=== PATIENT | female | born 1970 | race African-American/Black ===

== ENCOUNTER 2023-08-07 08:03 | Emergency (ER) | payer MEDICARE, OTHER ==
[2023-08-07] MEDS ORDERED: SODIUM CHLORIDE 0.9% 1,000 ML IV ONE (08:58)
[2023-08-07] MEDS ORDERED: MAG HYDROX/AL HYDROX/SIMETH 30 ML, HYOSCYAMINE ELIXIR 10 ML, LIDOCAINE VISCOUS 2% 10 ML PO STA ×3 (08:58)
--- NOTE | 2023-08-07 09:01 | ED ---
General Adult HPI - General Chief complaint: Nausea/Vomiting/Diarrhea Stated complaint: Vomiting, Diarrhea Time Seen by Provider: 08/07/23 08:16 Source: patient, RN notes reviewed Mode of arrival: ambulatory Limitations: no limitations - History of Present Illness Initial comments: 52-year-old -German female with no significant past medical history presents chief complaint of nausea, vomiting, diarrhea 3 days. She reports epigastric abdominal pain that is worse when she tries to eat something. She's been taking Pepto-Bismol with mild symptomatic relief. She does not take any medications daily. She denies history of appendectomy or cholecystectomy. Denies fever, chills, cough, hematemesis, melena, hematochezia. Denies recent sick contacts. - Related Data Previous Rx's Medication Instructions Recorded Dicyclomine [Bentyl] 20 mg PO TID #30 tablet 08/07/23 Ondansetron Odt [Zofran Odt] 4 mg PO Q8HR PRN #10 tab 08/07/23 Allergies Allergy/AdvReac Type Severity Reaction Status Date / Time No Known Allergies Allergy Verified 08/07/23 08:08 Review of Systems ROS Statement: Those systems with pertinent positive or pertinent negative responses have been documented in the HPI. ROS Other: All systems not noted in ROS Statement are negative. Past Medical History Past Medical History: No Reported History Past Surgical History: No Surgical Hx Reported Past Psychological History: No Psychological Hx Reported Smoking Status: Never smoker Past Alcohol Use History: Occasional Past Drug Use History: None Reported General Exam - General Exam Comments Initial Comments: General: Alert, in no acute distress Head: atraumatic normocephalic. Eyes PERRL, EOMI intact, mucous membranes moist Respiratory: Lungs clear to auscultation bilaterally Cardiovascular: Heart rate regular rate and rhythm Abdominal: Soft without guarding or rebound, epigastric tenderness. Extremities: Normal inspection with full range of motion and normal capillary refill Neuroogic: alert and oriented 3, CN II-XII intact, able to ambulate with steady gait Skin: warm dry and intact with normal color Limitations: no limitations Course Vital Signs 08/07/23 08/07/23 08/07/23 08:06 09:08 11:21 Temperature 98.2 F 98.4 F Pulse Rate 128 H 102 H 109 H Respiratory 24 20 18 Rate Blood Pressure 141/98 146/100 148/97 O2 Sat by Pulse 100 100 97 Oximetry 08/07/23 08/07/23 13:15 15:18 Temperature 98.6 F 98.5 F Pulse Rate 96 92 Respiratory 18 18 Rate Blood Pressure 146/94 148/92 O2 Sat by Pulse 98 98 Oximetry - Reevaluation(s) Reevaluation #1: 08/07/23 11:27 patient reevaluated. Patient still reports pain. Additional imaging ordered. Reevaluation #2: 08/07/23 13:27 Should reevaluated. Patient updated on x-ray results. Awaiting need for CAT scan. EKG Findings - EKG Comments: EKG Findings:: I interpreted the following: EKG performed at 09:33 80 bpm normal sinus rhythm [place] interval 139, QRS duration 87, QT/QTc 386/422 Medical Decision Making - Medical Decision Making Was pt. sent in by a medical professional or institution (Dr. PA, [facility] [facility], urgent care, hospital, or penitentiary...) When possible be specific @ -[No] Did you speak to anyone other than the patient for history (EMS, parent, family, police, friend...)? What history was obtained from this source @ -[No] Did you review nursing and triage notes (agree or disagree)? Why? @ -[I reviewed and agree with nursing and triage notes] Were old charts reviewed (outside hosp., previous admission, EMS record, old EKG, old radiological studies, urgent care reports/EKG's, penitentiary records)? Report findings @ -[No old charts were reviewed] Differential Diagnosis (chest pain, altered mental status, abdominal pain women, abdominal pain men, vaginal bleeding, weakness, fever, dyspnea, syncope, headache, dizziness, GI bleed, back pain, seizure, CVA, palpatations, mental health, musculoskeletal)? @ -[not applicable] EKG interpreted by me (3pts min.). @ -[As above] X-rays interpreted by me (1pt min.). @ -[None done] CT interpreted by me (1pt min.). @ -Abdominal CT reveals: Colitis U/S interpreted by me (1pt. min.). @ -R ultrasound does not reveal any evidence of cholelithiasis What testing was considered but not performed or refused? (CT, X-rays, U/S, labs)? Why? @ -[None] What meds were considered but not given or refused? Why? @ -[None] Did you discuss the management of the patient with other professionals (professionals i.e. , JANEEN, [facility] [facility], lab, RT, psych nurse, social work lecturer, human resources vice president, teacher, dog license officer supervisor, showcase trimmer)? Give summary @ -[No] Was smoking cessation discussed for >3mins.? @ -[No] Was critical care preformed (if so, how long)? @ -[No] Were there social determinants of health that impacted care today? How? (Home lessness, low income, unemployed, alcoholism, drug addiction, transportation, low edu. Level, literacy, decrease access to med. care, custodial, rehab)? @ -[No] Was there de-escalation of care discussed even if they declined (Discuss DNR or withdrawal of care, Hospice)? DNR status @ -[No] What co-morbidities impacted this encounter? (DM, HTN, Smoking, COPD, CAD, Cancer, CVA, ARF, Chemo, Hep., AIDS, mental health diagnosis, sleep apnea, morbid obesity)? @ -[None] Was patient admitted / discharged? Hospital course, mention meds given and route, prescriptions, significant lab abnormalities, going to OR and other pertinent info. @ -Discharged. This is a 52-year-old -German female who presents the emergency department with nausea, vomiting, diarrhea. Patient had a thorough history and physical exam performed. Physical exam unremarkable. Patient had no episodes of vomiting while in the ED. Patient afebrile. Vital signs stable. Patient had laboratory an extensive imaging were performed which were unremarkable. Patient was discharged with Reglan and Zofran. Recommend close follow-up with PCP in 1-2 days. Case discussed with Dr. Mari Tavon who agrees with plan of care Undiagnosed new problem with uncertain prognosis? @ -[No] Drug Therapy requiring intensive monitoring for toxicity (Heparin, Nitro, Insulin, Cardizem)? @ -[No] Were any procedures done? @ -[No] Diagnosis/symptom? @ -Nausea, vomiting, diarrhea - Colitis Acute, or Chronic, or Acute on Chronic? @ -Acute Uncomplicated (without systemic symptoms) or Complicated (systemic symptoms)? @ -Uncomplicated Side effects of treatment? @ -[No] Exacerbation, Progression, or Severe Exacerbation? @ -[No] Poses a threat to life or bodily function? How? (Chest pain, [place], [place], pneumonia, PE, COPD, DKA, ARF, appy, cholecystitis, CVA, Diverticulitis, Homicidal, S uicidal, threat to staff... and all critical care pts) @ -Low likelihood - Lab Data Result diagrams: 08/07/23 09:19 08/07/23 09:19 Lab Results 08/07/23 08/07/23 08/07/23 Range/Units 09:19 09:19 09:19 WBC 7.0 (3.8-10.6) k/uL RBC 3.91 (3.80-5.40) m/uL Hgb 13.1 (11.4-16.0) gm/dL Hct 40.1 (34.0-46.0) % MCV 102.6 H (80.0-100.0) fL MCH 33.4 (25.0-35.0) pg MCHC 32.6 (31.0-37.0) g/dL RDW 14.4 (11.5-15.5) % Plt Count 369 (150-450) k/uL MPV 7.7 Neutrophils % 61 % Lymphocytes % 33 % Monocytes % 4 % Eosinophils % 2 % Basophils % 0 % Neutrophils # 4.2 (1.3-7.7) k/uL Lymphocytes # 2.3 (1.0-4.8) k/uL Monocytes # 0.3 (0-1.0) k/uL Eosinophils # 0.1 (0-0.7) k/uL Basophils # 0.0 (0-0.2) k/uL Macrocytosis Slight Sodium 142 (137-145) mmol/L Potassium 3.7 (3.5-5.1) mmol/L Chloride 106 (98-107) mmol/L Carbon Dioxide 21 L (22-30) mmol/L Anion Gap 15 mmol/L BUN 11 (7-17) mg/dL Creatinine 0.63 (0.52-1.04) mg/dL Est GFR (CKD-EPI)AfAm >90 (>60 ml/min/1.73 sqM) Est GFR (CKD-EPI)NonAf >90 (>60 ml/min/1.73 sqM) Glucose 131 H (74-99) mg/dL Calcium 10.0 (8.4-10.2) mg/dL Total Bilirubin 0.8 (0.2-1.3) mg/dL AST 34 (14-36) U/L ALT 23 (4-34) U/L Alkaline Phosphatase 89 (38-126) U/L Total Protein 9.1 H (6.3-8.2) g/dL Albumin 4.7 (3.5-5.0) g/dL Lipase 400 H (23-300) U/L Influenza Type A (PCR) Not Detected (Not Detectd) Influenza Type B (PCR) Not Detected (Not Detectd) RSV (PCR) Not Detected (Not Detectd) SARS-CoV-2 (PCR) Not Detected (Not Detectd) Disposition Clinical Impression: Nausea and vomiting, Diarrhea, Colitis Disposition: HOME SELF-CARE Condition: Stable Instructions (If sedation given, give patient instructions): Acute Nausea and Vomiting (ED), Acute Diarrhea (ED) Additional Instructions: Please monitor symptoms closely Please return to the nearest emergency department if worsening symptoms develop Prescriptions: Dicyclomine [Bentyl] 20 mg PO TID #30 tablet Ondansetron Odt [Zofran Odt] 4 mg PO Q8HR PRN #10 tab PRN Reason: Nausea Is patient prescribed a controlled substance at d/c from ED?: No Referrals: None,Stated [Primary Care Provider] - 1-2 days Forms: Area PCPs Time of Disposition: 14:54
[2023-08-07] MEDS ORDERED: ONDANSETRON 4 MG/2 ML VIAL IVP STA (09:26)
[2023-08-07 09:35] LABS: Basophils % (A) 0 %; Eosinophils # (A) 0.1 k/uL (0-0.7); Eosinophils % (A) 2 %; HCT 40.1 % (34.0-46.0); HGB 13.1 gm/dL (11.4-16.0); Lymphocytes # (A) 2.3 k/uL (1.0-4.8); Lymphocytes % (A) 33 %; MCH 33.4 pg (25.0-35.0); MCHC 32.6 g/dL (31.0-37.0); MCV 102.6 fL (80.0-100.0); Macrocytosis Slight; Mean Platelet Volume 7.7; Monocytes # (A) 0.3 k/uL (0-1.0); Monocytes % (A) 4 %; Neutrophils # (A) 4.2 k/uL (1.3-7.7); Neutrophils % (A) 61 %; Platelet Count 369 k/uL (150-450); RBC 3.91 m/uL (3.80-5.40); RDW 14.4 % (11.5-15.5)
[2023-08-07 09:45] LABS: ALT 23 U/L (4-34); AST 34 U/L (14-36); African American GFR (CKD) >90 (>60 ml/min/1.73 sqM); Albumin 4.7 g/dL (3.5-5.0); Alkaline Phosphatase 89 U/L (38-126); Anion Gap 15 mmol/L; Blood Urea Nitrogen 11 mg/dL (7-17); Carbon Dioxide 21 mmol/L (22-30); Chloride 106 mmol/L (98-107); Glucose 131 mg/dL (74-99); Lipase 400 U/L (23-300); Non-African American GFR(CKD) >90 (>60 ml/min/1.73 sqM); Sodium 142 mmol/L (137-145); Total Bilirubin 0.8 mg/dL (0.2-1.3); Total Protein 9.1 g/dL (6.3-8.2)
[2023-08-07 10:07] LABS: Potassium 3.7 mmol/L (3.5-5.1)
[2023-08-07] MEDS ORDERED: MORPHINE SULFATE 4 MG/ML SYRINGE IVP STA (11:19)
[2023-08-07 11:50] VITALS: RESP 18
--- NOTE | 2023-08-07 12:07 | US ---
EXAMINATION TYPE: US gallbladder DATE OF EXAM: 08/07/2023 COMPARISON: NONE CLINICAL INDICATION: Female, 52 years old with history of elevated lipase; n/v x 4 days, elevated lab s TECHNIQUE: Multiple sonographic images of the right upper quadrant are obtained. FINDINGS: EXAM MEASUREMENTS: Liver Length: 16.0 cm Gallbladder Wall: 0.2 cm CBD: 0.6 cm Right Kidney: 8.4 x 4.1 x 3.3 cm CORE ANALYST NOTES:bowel gas obscures views Pancreas: limited view appears wnl Liver: difficult to penetrate Gallbladder: wnl Evidence for sonographic Sherman's sign: no CBD: wnl Right Kidney: wnl IMPRESSION: No acute process.
[2023-08-07] MEDS ORDERED: METOCLOPRAMIDE 5 MG/ML 2 ML VIAL IVP STA (12:55)
[2023-08-07] MEDS ORDERED: DICYCLOMINE 10 MG CAP PO STA (12:55)
--- NOTE | 2023-08-07 13:55 | CT ---
EXAMINATION TYPE: CT abdomen pelvis w con CT DLP: 1221.3 mGycm, Automated exposure control for dose reduction was used. DATE OF EXAM: 08/07/2023 1:47 PM COMPARISON: Ultrasound same day. CLINICAL INDICATION:Female, 52 years old with history of abdominal pain, elevated lipase; abdominal p ain, elevated lipase TECHNIQUE: Axial CT of the abdomen and pelvis. Sagittal and coronal reformats were created on a [employer] workstation. Contrast used:100ml mL of Isovue 300 with IV Contrast, (none if empty) Oral contrast used: without Oral Contrast (none if empty) FINDINGS: LOWER CHEST: Unremarkable ABDOMEN LIVER: Unremarkable GALLBLADDER AND BILE DUCTS: Unremarkable. PANCREAS: Unremarkable. SPLEEN: Unremarkable. A splenule is present in the left upper quadrant. ADRENAL GLANDS: Unremarkable. KIDNEYS AND URETERS: No evidence of hydronephrosis or renal calculus. The ureters are unremarkable. PELVIS BLADDER: Incompletely distended but grossly unremarkable. REPRODUCTIVE: Unremarkable. ABDOMEN & PELVIS STOMACH AND BOWEL: Stomach and duodenum are unremarkable. In the left mid abdomen there is a prominen t loop of transverse with mild wall thickening. No evidence of bowel obstruction. PERITONEUM/RETROPERITONEUM: No evidence of pneumoperitoneum or free fluid. VASCULATURE: No evidence of aortic aneurysm. MUSCULOSKELETAL: Mass degenerative changes of the right hip joint. No acute osseous process. Postsurg ical changes at L4-L5 with disc spacer. LYMPH NODES: No gross evidence for lymphadenopathy. SOFT TISSUE/ABDOMINAL WALL: Unremarkable IMPRESSION: Prominent focal loop of transverse colon with mild wall thickening. This may relate to developing col itis.
[2023-08-07 15:33] VITALS: BP 148/92; PULSE 92; TEMP 98.5
== END 2023-08-07 15:20 | disposition home or self-care (01) ==
LOC: EC 08:03
DX: K52.9 Noninfective gastroenteritis and colitis, unspecified (principal); Z20.822 Contact with and (suspected) exposure to COVID-19
CPT/HCPCS: 36415; 93005; 80053; 83690; 85025; 87636; 76705; 74177; 99285; 96374; 96375 ×2; 96361; J2270; J2765; J2405; Q9967

== ENCOUNTER 2023-12-07 17:18 | Emergency (ER) | payer MEDICARE, OTHER ==
--- NOTE | 2023-12-07 17:32 | ED ---
Back Pain HPI - General Source: patient, RN notes reviewed Limitations: no limitations <Mary Madrigal - Last Filed: 12/07/23 19:06> <Edward Beckett - Last Filed: 12/07/23 20:45> - General Chief Complaint: Back Pain/Injury Stated Complaint: Neuropathy Time Seen by Provider: 12/07/23 17:30 - History of Present Illness Initial Comments: 53 year old female presents to the with a chief complaints of left thigh muscle pain and back pain. Patient has an extensive history of lower back pain, states that she has had surgery of her lumbar spine, and states that she used to follow with a printing specialist and transportation maintenance specialist in [place], but moved to this area relatively 5 months ago. Patient denies any new any trauma to the area. Patient denies history of blood clots, is not on a blood thinner. That she has had numbness and tingling to her left foot over the last 6 months. Used to well with pain management at [place] and has been taking Percocet, Tylenol threes, Motrin at home. Denies any saddle anesthesias, loss of bladder or bowel continence. (Mary Madrigal) - Related Data Previous Rx's Medication Instructions Recorded Dicyclomine [Bentyl] 20 mg PO TID #30 tablet 08/07/23 Ondansetron Odt [Zofran Odt] 4 mg PO Q8HR PRN #10 tab 08/07/23 methocarbamoL [Robaxin-750] 750 mg PO QID #15 tab 12/07/23 Allergies Allergy/AdvReac Type Severity Reaction Status Date / Time No Known Allergies Allergy Verified 12/07/23 17:28 Review of Systems ROS Other: All systems not noted in ROS Statement are negative. <Mary Madrigal - Last Filed: 12/07/23 19:06> ROS Other: All systems not noted in ROS Statement are negative. <Edward Beckett - Last Filed: 12/07/23 20:45> ROS Statement: Those systems with pertinent positive or pertinent negative responses have been documented in the HPI. Past Medical History Past Medical History: No Reported History History of Any Multi-Drug Resistant Organisms: None Reported Past Surgical History: No Surgical Hx Reported Additional Past Surgical History / Comment(s): Spinal fusion Past Psychological History: No Psychological Hx Reported Smoking Status: Never smoker Past Alcohol Use History: Occasional Past Drug Use History: None Reported <FrancescoMary fulton - Last Filed: 12/07/23 19:06> General Exam Limitations: no limitations General appearance: alert, in no apparent distress Head exam: Present: atraumatic, normocephalic, normal inspection Eye exam: Present: normal appearance, PERRL, EOMI. Absent: scleral icterus, conjunctival injection, periorbital swelling ENT exam: Present: normal exam, mucous membranes moist Neck exam: Present: normal inspection. Absent: tenderness, meningismus, lymphadenopathy Respiratory exam: Present: normal lung sounds bilaterally. Absent: respiratory distress, wheezes, rales, rhonchi, stridor Cardiovascular Exam: Present: regular rate, normal rhythm, normal heart sounds. Absent: systolic murmur, diastolic murmur, rubs, gallop, clicks GI/Abdominal exam: Present: soft, normal bowel sounds. Absent: distended, tenderness, guarding, rebound, rigid Extremities exam: Present: normal inspection, full ROM, normal capillary refill. Absent: tenderness, pedal edema, joint swelling, calf tenderness Left Upper Leg exam: Present: tenderness (diffuse tenderness on the posterior thigh, not point identified or with ROM). Absent: full ROM, swelling Knee exam: Present: normal inspection, full ROM Lower Leg exam: Present: normal inspection Neurovascular tendon exam: Present: no vascular compromise. Absent: pulse de ficit Back exam: Present: normal inspection, vertebral tenderness (diffuse lumbar tenderness with flexion and extension) Neurological exam: Present: alert, oriented X3, CN II-XII intact Psychiatric exam: Present: normal affect, normal mood Skin exam: Present: warm, dry, intact, normal color. Absent: rash <Mary Madrigal - Last Filed: 12/07/23 19:06> Course Vital Signs 12/07/23 12/07/23 17:23 19:05 Temperature 98.3 F Pulse Rate 75 71 Respiratory 20 16 Rate Blood Pressure 161/77 136/91 O2 Sat by Pulse 98 100 Oximetry Medical Decision Making <Mary Madrigal - Last Filed: 12/07/23 19:06> <Edward Beckett - Last Filed: 12/07/23 20:45> - Medical Decision Making Was pt. sent in by a medical professional or institution (JANEEN Seaman, MOTHER HELPER, urgent care, hospital, or assisted...) When possible be specific @ -[No] Did you speak to anyone other than the patient for history (EMS, parent, family, police, friend...)? What history was obtained from this source @ -[No] Did you review nursing and triage notes (agree or disagree)? Why? @ -[I reviewed and agree with nursing and triage notes] Were old charts reviewed (outside hosp., previous admission, EMS record, old EKG, old radiological studies, urgent care reports/EKG's, assisted records)? Report findings @ -[No old charts were reviewed] Differential Diagnosis (chest pain, altered mental status, abdominal pain women, abdominal pain men, vaginal bleeding, weakness, fever, dyspnea, syncope, headache, dizziness, GI bleed, back pain, seizure, CVA, palpatations, mental health, musculoskeletal)? @ -Differential Musculoskeletal Muscular strain, contusion, ligament sprain, fracture, arthritis, septic arthritis, bursitis, cellulitis, muscle spasm, nerve compression, DVT, arterial occlusion, herpes zoster, electrolyte abnormality, tumor.... This is not meant to be in all inclusive list EKG interpreted by me (3pts min.). @ -None X-rays interpreted by me (1pt min.). @ -[None done] CT interpreted by me (1pt min.). @ -[None done] U/S interpreted by me (1pt. min.). @ -duplex ultrasound of left extremity reveals no evidence of DVT What testing was considered but not performed or refused? (CT, X-rays, U/S, labs)? Why? @ -[None] What meds were considered but not given or refused? Why? @ -[None] Did you discuss the management of the patient with other professionals (professionals i.e. JANEEN Seaman, MOTHER HELPER, lab, RT, psych nurse, social welfare clerk, plumbing technician, teacher, commissioned police officer, casework manager)? Give summary @ -[No] Was smoking cessation discussed for >3mins.? @ -[No] Was critical care preformed (if so, how long)? @ -[No] Were there social determinants of health that impacted care today? How? (Homelessness, low income, unemployed, alcoholism, drug addiction, transportation, low edu. Level, literacy, decrease access to med. care, shelter, rehab)? @ -[No] Was there de-escalation of care discussed even if they declined (Discuss DNR or withdrawal of care, Hospice)? DNR status @ -[No] What co-morbidities impacted this encounter? (DM, HTN, Smoking, COPD, CAD, Cancer, CVA, ARF, Chemo, Hep., AIDS, mental health diagnosis, sleep apnea, morbid obesity)? @ -[None] Was patient admitted / discharged? Hospital course, mention meds given and route, prescriptions, significant lab abnormalities, going to OR and other pertinent info. @ -53-year-old female with left leg pain and lumbar back pain. Physical exam patient was found to have diffuse tenderness over the posterior left thigh that was not exacerbated by palpation, patient states that her pain is worse with swallowing, but denies pain with flexion extension of knee or hip. Duplex ultrasound of left extremity reveals no evidence of DVT. Was given IM dose of muscle relaxer for symptomatic relief. Xray of lumbar spine and pelvis Undiagnosed new problem with uncertain prognosis? @ -[No] Drug Therapy requiring intensive monitoring for toxicity (Heparin, Nitro, Insulin, Cardizem)? @ -[No] Were any procedures done? @ -[No] Diagnosis/symptom? @ -[default] Acute, or Chronic, or Acute on Chronic? @ -[default] Uncomplicated (without systemic symptoms) or Complicated (systemic symptoms)? @ -[default] Side effects of treatment? @ -[No] Exacerbation, Progression, or Severe Exacerbation? @ -[No] Poses a threat to life or bodily function? How? (Chest pain, [place], [place], pneumonia, PE, COPD, DKA, ARF, appy, cholecystitis, CVA, Diverticulitis, Homicidal, Suicidal, threat to staff... and all critical care pts) @ -[No] (Mary Madrigal) Patient signed out to me pending plain films. Patient presenting to the ED with complaints of pain of her lower back radiating down her lower leg. Reports that this is a chronic problem however recently has developed some paresthesias down her left leg. No saddle anesthesia or incontinence. Patient reports that she used to follow [place] orthopedics and pain management [place] of [place] however notes that she recently moved to this area and would like to have referrals to the specialist here. Also notes that she was worried about a blood clot of her left leg. Ultrasound revealed no evidence of DVT. On exam positive straight leg raise on the left. Symptoms consistent with radiculopathy. Discharged home in stable condition with prescription for muscle relaxers and referral to see orthopedics and pain management. Discussed return precautions with patient who verbalized agreement. (Edward Beckett) Disposition <Mary Madrigal - Last Filed: 12/07/23 19:06> Is patient prescribed a controlled substance at d/c from ED?: No Time of Disposition: 20:45 <Edward Beckett - Last Filed: 12/07/23 20:45> Clinical Impression: Back pain Disposition: HOME SELF-CARE Condition: Good Additional Instructions: Please return to the Emergency Department if symptoms worsen or any other concerns. Please follow-up with orthopedics and pain management. Prescriptions: methocarbamoL [Robaxin-750] 750 mg PO QID #15 tab Referrals: None,Stated [Primary Care Provider] - 1-2 days
[2023-12-07 17:35] VITALS: TEMP 98.3
--- NOTE | 2023-12-07 18:40 | US ---
EXAMINATION TYPE: US venous doppler duplex LE LT DATE OF EXAM: 12/07/2023 6:27 PM COMPARISON: NONE CLINICAL INDICATION: Female, 53 years old with history of upper leg pain; leg pain x months. No hx of DVT. Not on blood thinners SIDE PERFORMED: Left TECHNIQUE: The lower extremity deep venous system is examined utilizing real time linear array sonog lukas with graded compression, doppler sonography and color-flow sonography. VESSELS IMAGED: Common Femoral Vein Deep Femoral Vein Greater Saphenous Vein * Femoral Vein Popliteal Vein Small Saphenous Vein * Proximal Calf Veins (* superficial vessels) There is normal venous flow, compressibility, and vascular waveforms in the left leg. Left Leg: No evidence for DVT IMPRESSION: Left leg negative for DVT.
[2023-12-07] MEDS: ORPHENADRINE 30 MG/ML 2 ML VIAL IM STA (19:01)
[2023-12-07 19:14] VITALS: RESP 16
--- NOTE | 2023-12-07 20:09 | XR ---
EXAMINATION TYPE: XR pelvis AP view DATE OF EXAM: 12/07/2023 6:50 PM CLINICAL INDICATION:Female, 53 years old with history of back pain, hx of surgery; [facility] COMPARISON: None TECHNIQUE: The pelvis was examined in a single projection. FINDINGS: There is no evidence of fracture or dislocation. Moderate to severe right and minimal left hip osteoa rthropathy. There is no soft tissue abnormality. No abnormal calcifications are present. Lower lumba r spine shows posterior fusion changes. There are pelvic phleboliths. IMPRESSION: 1. No acute fracture or dislocation identified, on this single view of the pelvis. 2. Moderate to severe right hip arthropathy.
--- NOTE | 2023-12-07 20:12 | XR ---
EXAMINATION TYPE: XR lumbar spine 2 or 3V DATE OF EXAM: 12/07/2023 6:50 PM CLINICAL INDICATION:Female, 53 years old with history of back pain, hx of surgery; [facility] COMPARISON: None TECHNIQUE: XR lumbar spine 2 or 3V - Frontal, lateral and coned down L5-S1 lateral views of the lumba r spine. FINDINGS: There are 5 lumbar-type vertebral bodies. Mineralization appears within normal limits. No osseous aarno tructive process seen. Vertebral body heights are maintained. Disc spaces are generally maintained, h owever there may be mild narrowing in the region of the thoracolumbar junction. There are bilateral p edicle screws and posterior fixation rods at the L4-L5 level along with prosthetic metallic disc inte rspacer. Alignment is normal. Soft tissues are unremarkable. IMPRESSION: 1. No radiographic evidence of acute compression fracture. 2. Posterior lumbar fusion L4-L5.
[2023-12-07] MEDS: CYCLOBENZAPRINE 10MG STARTER 3 TAB BTL PO STA (21:07)
[2023-12-07 21:25] VITALS: BP 140/93; PULSE 84
== END 2023-12-07 21:14 | disposition home or self-care (01) ==
LOC: EC 17:18
DX: M43.26 Fusion of spine, lumbar region (principal)
CPT/HCPCS: 99284; 96372; 72100; 72170; 93971; J2360

== ENCOUNTER → 2024-06-25 | Outpatient (CLI) | payer MEDICARE, OTHER ==
[2024-06-25 14:17] VITALS: BP 120/88; PULSE 100; RESP 17; TEMP 98.9
--- NOTE | 2024-06-25 14:53 | P.PAINPG ---
Objective - Vital Signs Vital signs: Intake & Output 06/24/24 06/25/24 06/25/24 18:59 06:59 18:59 Weight 189 kg PQRS Measure Charge Sheet Comment: HISTORY OF PRESENT ILLNESS: A 53 yr old female as a referral from Dr Hdz presents today w severe and chronic LBP > 4 yrs secondary to L4-L5 PLDF for evaluation. Pt states pain level is provoked at 10 /10 in intensity, constant, localized in the lower lumbar spine, predominantly axial, achy in character w occasional shooting pain towards the R hip and tingling towards the L ankle. Pain is provoked by over activity. Pain is alleviated by PT x 6 wks which ended in 2022, physician guided home exercises 4 weekly since 2022, medications (Aleve, Mobic, Ibu, Percocet 10/325mg 7 per day), use of walker for ambulatory assistance, repositioning and rest . PMH: OA, Hypothyroidism, MDD PSH: PLDF L4-L5 (2019), SH: Never smoker, Occ ETOH use, No illicit drug use FH: Non contributory All: See list Meds: See list REVIEW OF ORGAN SYSTEMS: CONSTITUTIONAL: No fevers or chills. No recent weight loss. NEUROLOGICAL: + numbness and tingling along the distal extremities. No seizure disorders or headaches. MUSCULOSKELETAL: + pain PSYCHIATRIC: Denies current depression or suicidal thoughts. Physical Examinations : Constitutional : Cooperative , not in acute distress . Neurologic : Cranial nerve II to XII intact. No focal neurological deficits. Psychiatric : alert & oriented x 3. Matching mood & appropriate affect. Judgment & insight intact. Musculoskeletal : Cervical Spine Motor strength in the deltoid and biceps: Normal right side. Normal Left side Motor strength biceps and the wrist extensors: Normal right side . Normal left side Motor strength in the triceps muscle: Normal right side. Normal left side Deep tendon reflexes: Normal at the biceps. Normal at Brachioradialis. Normal at triceps Vertebral body tenderness to deep palpation over Cervical facet loading test: positive bilaterally Spurling test: positive bilaterally Neck distraction test: positive bilaterally Nissa sign: positive bilaterally Lumbar spine Motor strength lower extremities ,thigh and legs 5/5 Right side , 5/5 Left side Deep tendon reflexes : Normal Knee Jerk. Normal Ankle Jerk Vertebral body tenderness over L5 Rahman Test positive Lumbar facet Loading Test: positive Right / positive Left Range of motion of the lumbar spine Flexion 30 degrees, extension 10 degrees Straight Leg Raise test: Left/ Right positive at < 30 degrees Connie test: positive right / positive left. Severe tenderness over the Sacroiliac joint on the Right / Left sides Gaenslen test: positive bilaterally Seated flexion test: positive bilaterally. Sacral spine : Severe tenderness over the Sacroiliac joint: right side / left side Range of motion: Flexion of the lumbar spine <60 degrees Range of motion: Extension of the lumbar spine <20 degrees Gaenslen's Test positive Connie test: positive right side / left side Thigh Thrust Test Sacral Thrust Test Imaging: MRI non contrast lumbar spine from 06/10/2022 reviewed Assessment/ Plan : L4-L5 PLDF Recommendation of BL TFESI L5-S1 #1. Risks, benefits of procedure discussed and patient verbalized understanding. Admits to anti- coagulant use or medical history of diabetes. Protocol for discontinuation/ continuation of medications rhiannon procedure discussed. All questions answered. I have spent greater than 30 minutes on patient care today. Dr Ramsey was available by phone for the evaluation of this patient. The time was used to review the medical records including relevant urine studies and Prescription history (MAPs), review of the available imaging, evaluation and examination of the patient, coordination of care with the medical staff and if applicable referring physicians, as well as creation of the medical record Home Medications: Ambulatory Orders Dicyclomine [Bentyl] 20 mg PO TID #30 tablet 08/07/23 Ondansetron Odt [Zofran Odt] 4 mg PO Q8HR PRN #10 tab 08/07/23 methocarbamoL [Robaxin-750] 750 mg PO QID #15 tab 12/07/23 Controlled Substance Measures - Controlled Substance Measures Is patient prescribed a controlled substance at discharge?: No
== END ==
LOC: PNWHC3 13:48
PROVIDERS: ATTEND Specialist
DX: M47.817 Spondylosis without myelopathy or radiculopathy, lumbosacral region (principal); M48.062 Spinal stenosis, lumbar region with neurogenic claudication; M51.86 Other intervertebral disc disorders, lumbar region
CPT/HCPCS: 99202

== ENCOUNTER → 2024-06-28 | Day surgery (SDC) | payer MEDICARE, OTHER ==
[~2024-06-28] MED LIST: IOPAMIDOL M200 10 ML VIAL ONE; LACTATED RINGERS 1,000 ML IV SCH; methylPREDNISolone ACETATE 80 MG/ML 1 ML VIAL ONE
[2024-06-28 09:20] VITALS: TEMP 96.6
--- NOTE | 2024-06-28 10:22 | P.PCN ---
Date of Procedure: 06/28/24 Procedure(s) Performed: PREOPERATIVE DIAGNOSIS: 1-Lumbar radiculopathy . 2- postlaminectomy pain syndrome lumbar area POSTOPERATIVE DIAGNOSIS: 1-lumbar radiculopathy. 2-laminectomy pain syndrome lumbar area PROCEDURE 1. Transforaminal epidural steroid injection under fluoroscopic guidance at bilateral L5-S1 level. (Fluoroscopy images stored on file in the radiology Department ) 2. Lumbar epidurogram . ANESTHESIA: Local with 1% lidocaine 3 ml. EBL: Minimal PROCEDURE INDICATION: The patient with low back pain and radiculopathy symptoms unresponsive to conservative treatment. PROCEDURE DESCRIPTION / TECHNIQUE: The patient was seen and identified in the preoperative area. Risks, benefits, complications, and alternatives were discussed with the patient. The patient agreed to proceed with the procedure and signed the consent. IV was started, and vital signs were stable. Patient was taken to the OR and time out was completed. The patient was placed in the prone position on procedure table and a pillow was placed under the abdomen to reduce lumbar lordosis. The lumbosacral area was prepped and draped in the usual sterile fashion. Critical pause was taken. Vital signs were closely monitored during the procedure. Using oblique fluoroscopy, the chin of the ``Frank dog at Right L5-S1 level was identified, and the skin and deeper tissues just below was localized with 1% lidocaine. Subsequently, a 22-gauge 5-inch spinal needle was advanced under a tunneled view fluoroscopic guidance just underneath the chin of the ``Frank dog at the right L5-S1 Under lateral fluoroscopy, the needle was then advanced to the posterior border of the interforaminal space. After negative aspiration of CSF and blood and with no paresthesias, 1 mL Isovue 200 contrast dye was injected excellent epidurogram and outlining of the nerve root Subsequently, 3 mL of block solution containing 40 mg Depo-Medrol and 2 mL of 0.9% normal saline PF was injected. Needle was removed and the same procedure was repeated at the left L5-S1 level. At the end of the procedure, skin was cleansed, and bandages were applied. COMPLICATIONS:none DISPOSITION / PLANS: The patient was placed in a supine position and transferred to the recovery area in a stable condition for observation. There was no abby dence of lower extremity motor or sensory deficit after the procedure. Patient was discharged from the recovery room after meeting discharge criteria. Home discharge instructions were given to the patient by the staff. The patient was reexamined prior to discharge.
[2024-06-28 10:39] VITALS: BP 130/91; PULSE 77; RESP 14
--- NOTE | 2024-06-28 11:10 | FL ---
Fluoroscopy guided pain management. HISTORY: Back pain. COMPARISON: None TECHNIQUE: 15 seconds of fluoroscopy and 2 spot films were obtained for transforaminal injection at t he L5-S1 level. FINDINGS: Satisfactory bilateral transforaminal injection at the L5-S1 level [facility], , 06/28/2024 11:07 AM
== END ==
LOC: ORPAIN 08:57
PROVIDERS: ATTEND Specialist

== ENCOUNTER → 2024-12-25 | Outpatient (CLI) | payer MEDICARE, OTHER ==
[2024-12-25 14:04] LABS: INR 0.9 (<1.2); Prothrombin Time 10.3 sec (10.0-12.5)
[2024-12-25 18:12] LABS: Basophils # (A) 0.03 X 10*3/uL (0.00-0.10); Basophils % (A) 0.6 %; Eosinophils # (A) 0.09 X 10*3/uL (0.04-0.35); Eosinophils % (A) 1.9 %; HCT 37.3 % (37.2-46.3); HGB 11.5 g/dL (12.0-15.0); Lymphocytes # (A) 2.18 X 10*3/uL (0.90-5.00); Lymphocytes % (A) 46.9 %; MCHC 30.8 g/dL (32.0-37.0); MCV 100.5 FL (80.0-97.0); Monocytes # (A) 0.39 X 10*3/uL (0.20-1.00); Monocytes % (A) 8.4 %; NRBC Per 100 WBC 0 X 10*3/uL (0.00-0.01); Neutrophils # (A) 1.95 X 10*3/uL (1.80-7.70); Platelet Count 378 X 10*3/uL (140-440); RBC 3.71 X 10*6/uL (4.10-5.20); RDW 15.9 % (11.5-14.5); WBC 4.65 X 10*3/uL (4.50-10.00)
[2024-12-25 19:02] LABS: BUN/Creat Ratio 11.12 Ratio (12.00-20.00); Blood Urea Nitrogen 8.9 mg/dL (9.0-27.0); Carbon Dioxide 27.6 mmol/L (21.6-31.8); Chloride 102 mmol/L (96-109); Glucose 82 mg/dL (70-110); Sodium 138 mmol/L (135-145)
[2024-12-25 19:03] LABS: ALT 15 U/L (8-44); AST 23 U/L (13-35); Albumin 4.3 g/dL (3.8-4.9); Albumin/Globulin Ratio 1.23 Ratio (1.60-3.17); Alkaline Phosphatase 80 U/L (41-126); Calcium 8.7 mg/dL (8.7-10.3); Globulin 3.5 g/dL (1.6-3.3); Total Bilirubin <0.2 mg/dL (0.3-1.2); Total Protein 7.8 g/dL (6.2-8.2)
== END | disposition home or self-care (01) ==
LOC: LABPAT 12:47
PROVIDERS: ATTEND Orthopaedic Surgery
DX: Z01.818 Encounter for other preprocedural examination (principal); Z22.322 Carrier or suspected carrier of Methicillin resistant Staphylococcus aureus; E11.9 Type 2 diabetes mellitus without complications; E03.9 Hypothyroidism, unspecified; M16.11 Unilateral primary osteoarthritis, right hip; F33.1 Major depressive disorder, recurrent, moderate; M96.1 Postlaminectomy syndrome, not elsewhere classified; D68.9 Coagulation defect, unspecified; R30.0 Dysuria
CPT/HCPCS: 80053; 83036; 85025; 85610; 85730; 86850; 86900; 86901; 87070; 93005

== ENCOUNTER 2025-01-04 08:51 | Day surgery (SDC) | payer MEDICARE, OTHER ==
[2024-12-28 11:44] VITALS: BMI 37.8
[~2025-01-04 08:51] MED LIST changes: -IOPAMIDOL M200 10 ML VIAL ONE; -LACTATED RINGERS 1,000 ML IV SCH; +TRANEXAMIC 1,000 MG/100ML-NACL 1,000 MG in SALINE 1 100ML.BAG IV PRN; +TRANEXAMIC 1,000 MG/100ML-NACL 1,000 MG in SALINE 1 100ML.BAG IVPB PRN; -methylPREDNISolone ACETATE 80 MG/ML 1 ML VIAL ONE
[2025-01-04] MEDS: LACTATED RINGERS 1,000 ML IV ONE ×2 (09:51→11:23)
[2025-01-04] MEDS: DOCUSATE 100 MG CAP PO PRN (09:52)
[2025-01-04] MEDS: oxyCODONE ER 10 MG TAB.ER.12H PO PRN (09:52)
[2025-01-04] MEDS: ACETAMINOPHEN TAB 500 MG TAB PO PRN (09:52)
[2025-01-04] MEDS: DEXAMETHASONE SOD PHOSPHATE 10 MG/ML 1 ML VIAL IV PRN (09:54)
[2025-01-04] MEDS: KETOROLAC 15 MG/ML 1 ML VIAL IVP PRN (09:54)
[2025-01-04] MEDS: LACTATED RINGERS 1,000 ML IV SCH (09:55)
[2025-01-04] MEDS: ONDANSETRON 4 MG/2 ML VIAL IVP PRN (09:55)
[2025-01-04] MEDS: FAMOTIDINE 20 MG/2 ML VIAL IVP PRN (09:55)
[2025-01-04] MEDS: MIDAZOLAM 2 MG/2 ML VIAL IV PRN (10:09)
[2025-01-04] MEDS: fentaNYL (PF) 50 MCG/ML 2 ML AMP IVP STA (10:09)
[2025-01-04] MEDS ORDERED: fentaNYL (PF) 50 MCG/ML 2 ML AMP ONE (10:32)
[2025-01-04] MEDS ORDERED: GLYCOPYRROLATE 0.2 MG/ML 2 ML VIAL ONE (10:32)
[2025-01-04] MEDS ORDERED: LIDOCAINE 1% INJ 10MG/ML (20 ML MDV) ONE (10:32)
[2025-01-04] MEDS ORDERED: PROPOFOL 10 MG/ML 20 ML VIAL IV ONE (10:32)
[2025-01-04] MEDS ORDERED: DEXAMETHASONE SOD PHOSPHATE 4 MG/ML 1 ML VIAL ONE (10:32)
[2025-01-04] MEDS ORDERED: ROCURONIUM 10 MG/ML (5 ML VIAL) IV ONE (10:32)
[2025-01-04] MEDS ORDERED: DEXAMETHASONE SOD PHOSPHATE 10 MG/ML 1 ML VIAL ONE (10:32)
[2025-01-04] MEDS ORDERED: PHENYLEPHRINE-0.9% NACL SYG 1,000 MCG/10 ML SYRINGE ONE (10:32)
[2025-01-04] MEDS ORDERED: TRANEXAMIC 1,000 MG/100ML-NACL PREMIX BAG ONE (10:32)
[2025-01-04] MEDS ORDERED: MIDAZOLAM 2 MG/2 ML VIAL ONE (10:32)
[2025-01-04] MEDS ORDERED: PHENYLEPHRINE 10 MG/ML VIAL ONE (10:32)
[2025-01-04] MEDS ORDERED: ROPIVACAINE 5 MG/ML 30 ML VIAL ONE (10:32)
[2025-01-04] MEDS ORDERED: NEOSTIGMINE 1 MG/ML 10 ML VIAL ONE (10:32)
[2025-01-04] MEDS ORDERED: SUCCINYLCHOLINE CHLORIDE 200 MG/10 ML VIAL IV ONE (10:32)
[2025-01-04] MEDS ORDERED: HYDROmorphone (PF) 1 MG/ML ONE (10:32)
[2025-01-04] MEDS ORDERED: KETAMINE HCL IN 0.9 % NACL 50 MG/5 ML SYRINGE ONE (10:32)
[2025-01-04] MEDS: ceFAZolin 2 GM in DEXTROSE 5% IN WATER 50 ML IVPB PRN (10:34)
[2025-01-04] MEDS: ROPIVACAINE/EPI/CLONIDINE/KET 50 ML SYRINGE MISCELLANE PRN (10:34)
--- NOTE | 2025-01-04 12:37 | P.OP ---
Date of Procedure: 01/04/25 Preoperative Diagnosis: 1. Severe right hip arthritis 2. BMI 36.9 Postoperative Diagnosis: Same Procedure(s) Performed: 1. Right direct anterior total hip arthroplasty Implants: 1. Tyler Trident II Acetabular Cup, Size #48 2. Tyler Insignia Size #3 Femoral Stem, High Offset 3. Dual Mobility OD 38 mm, ID 28 mm, -4 mm neck Anesthesia: MEGHANA, regional Surgeon: Mikhail Ramirez Services Mgr #1: Lenny Leo Estimated Blood Loss (ml): 300 IV fluids (ml): 800 Pathology: none sent Condition: stable Disposition: PACU Indications for Procedure: I had a long discussion with the patient in the office on the potential risks and complications of an elective total hip replacement through a direct anterior approach. Risks discussed include, but are certainly not limited to, risks from anesthesia, superficial infection requiring local wound care or antibiotics, deep rhiannon-prosthetic joint infection and the treatment required to eradicate infection, intraoperative fracture, postoperative periprosthetic fracture, damage to local blood vessels or nerves particularly the lateral femoral cutaneous nerve, delayed wound healing requiring local wound care or possibly surgical debridement, hip dislocation, leg length discrepancy, soft tissue irritation around the total hip implant such as iliopsoas tendinitis or trochanteric bursitis, wear and osteolysis from the implants, squeaking or audible noises, groin pain, thigh pain, heterotopic ossification, stiffness, aseptic loosening of the implants, dissatisfaction with surgical outcome, need for revision surgery, DVT, PE, swelling of the operative extremity, acute coronary event, stroke, failure to thrive, and possibly loss of life or limb. The patient understands that while these are the most common complications after an elective hip replacement there are certainly other less common complications possible. They were given ample time to ask questions regarding the potential complications of a hip replacement. Following our discussion the patient provided their verbal and written consent to go forward with an elective total hip replacement. Operative Findings: Severe right hip arthritis Description of Procedure: The patient was identified in the preoperative holding area and the correct hip was marked with my initials. I reviewed the procedure and consent with the patient. All of their questions were answered. The patient was then brought back into the operating room by anesthesia. While on the [facility] anesthesia was administered by the anesthesia team. Preoperative antibiotics and tranexamic acid were also given. After the patient was under anesthesia I examined their ankles to determine their preoperative leg length discrepancy. The skin over the anterior aspect of the hip was shaved to remove hair over the site of planned incision. Both feet and ankles were padded with webril and boots for the [place] were applied. The patient was then carefully transferred onto the [place] table. A perineal post was immediately placed. The arms were placed on arm holders and were well-padded. Both boots were secured to the spars on the [place] table. The patient was positioned so that the pelvis was centered over the post. Nonsterile drapes were applied. A timeout was performed identifying the correct patient, operative extremity, and procedure. At this point fluoroscopy was brought in to take preoperative images of the pelvis and operative hip. Using the standing AP pelvis from the office as a template, a comparable image was obtained with fluoroscopy. A metallic bar was used to create a bi-ischial line for use as a reference to leg length adjustments during the procedure. Global offset was also measured on both the operative and nonoperative leg. Fluoroscopy was then brought out and a pre-scrub using a chlorhexidine scrub brush was performed. The operative limb was then prepped and draped in the standard sterile fashion. An anterior longitudinal incision was made lateral and distal to the ASIS. The skin and subcutaneous tissues were incised sharply. The underlying tensor fascia was identified and incised in its midportion. The fascia was dissected free from the underlying muscle and the muscle belly was retracted. A blunt tipped cobra retractor was placed over the superior neck under the muscle fibers of the gluteus minimus. The deep enveloping fascia of the tensor was incised. The anterior leash of vessels were then identified and cauterized. The fascia between the rectus and the capsule was then incised and the pre-capsular fat was excised. A second Cobra was placed inferior to the neck. The interval between the rectus and iliocapsularis and the hip capsule was developed and a retractor was placed carefully over the anterior rim of the acetabulum. A T-shaped anterior capsulotomy was performed. The superior capsular leaflet was left in place in the inferior capsular flap was excised. The Cobra retractors were plac ed intracapsularly. We then made a femoral neck osteotomy according to preoperative and intraoperative templating and confirmed the level of the osteotomy using fluoroscopic imaging. The femoral head was removed, passed off to the back table, and sized. The superior capsular flap was excised. Retractors were placed circumferentially exposing the acetabulum. We then circumferentially debrided the acetabulum free of labrum and osteophytes. The pulvinar was removed to fully visualize the cotyloid fossa. We then sequentially reamed to achieve peripheral fit and excellent bleeding subchondral bone. The socket was thoroughly irrigated. The acetabular component was impacted into the appropriate position using fluoroscopy to guide version, inclination, and depth of insertion taking care to have a comparable image of the AP pelvis to the standing image taken in the office. An excellent press-fit was achieved and final position was confirmed using fluoroscopy. The press fit was augmented with a bony cancellus dome screw. The liner was then impacted into the socket. Attention was then turned to the femur. The remnant dorsal lateral capsule was excised. The short external rotators were visible and protected. A bone hook was used to confirm appropriate translation of the trochanter away from the acetabulum. The leg was then extended and adducted and the bone hook was used t o elevate the femur for broaching. A box osteotome and blunt tipped canal sound was then utilized to gain access to the femoral canal. We then sequentially broached the femur in appropriate anteversion until excellent torsional stability was achieved. The neck cut was brought flush to the trial broach with a calcar planar. A trial neck and head were then placed onto the broach and the hip was atraumatically reduced under direct visualization. External rotation to 90 was performed to assess stability. Fluoroscopy was brought in. An AP and lateral fluoroscopic image of the proximal femur was obtained to assess position and fill of the trial broach. An AP of the pelvis was then obtained and matched to the preoperative image taken. A bi-ischial bar was then placed and measurements were taken to assess changes in length and offset. The hip was then carefully dislocated, the proximal femur was exposed, and the trial implants were removed. The wound and proximal femur was thoroughly irrigated using sterile saline and pulsatile lavage. The final femoral implant was dispensed and gently tapped into place generating an excellent press-fit. The trunnion was cleansed and the final head was tapped into place to engage the Velazco taper. The acetabulum was irrigated and visualized to be free of debris. The hip was carefully reduced. Stability was checked clinically with external rotation to 90 and there was no evidence of instability. Final fluoroscopic images were taken. The wound was then thoroughly irrigated and soaked with a dilute Betadine rinse for 3 minutes. 3 L of sterile saline was irrigated through the wound using pulsatile lavage. Local anesthetic cocktail was injected into the soft tissues around the surgical field. The wound was then closed in layers. A sterile dressing was placed over the surgical incision. The drapes were taken down and the patient was carefully transferred off of the [place] table. Following removal of the boots the leg lengths felt acceptable. The patient was then taken to recovery room having tolerated the procedure well. Lenny Leo PA-C was required as a skilled middle school assistant principal due to the complexity of surgery for patient positioning, draping, exposure, retraction, closure of wound and application of dressing. PLAN: The patient can weight-bear as tolerated on the operative extremity. 2 doses of postoperative antibiotics. DVT prophylaxis with aspirin 81 mg twice a day based on preoperative risk stratification. Physical therapy for gait training.
[2025-01-04] MEDS ORDERED: MAGNESIUM HYDROXIDE 2,400 MG/30 ML CUP PO PRN (12:38)
[2025-01-04] MEDS ORDERED: HYDROcodone/APAP 5-325MG 1 EACH TAB PO PRN (12:38)
[2025-01-04] MEDS ORDERED: TEMAZEPAM 15 MG CAP PO PRN (12:38)
[2025-01-04] MEDS ORDERED: diazePAM 5 MG TAB PO PRN (12:38)
[2025-01-04] MEDS ORDERED: HYDROmorphone 0.5 MG/0.5 ML SYRINGE IVP PRN ×2 (12:38)
[2025-01-04] MEDS ORDERED: NALOXONE 0.4 MG/ML 1 ML VIAL IV PRN (12:38)
--- NOTE | 2025-01-04 12:39 | XR ---
EXAMINATION TYPE: XR Hip Limited RT, FL guidance operating room Intraoperative/procedural fluoroscopi c services were provided. CLINICAL INDICATION:Female, 54 years old with history of M16.11 RIGHT HIP OSTEOARTHRITIS; , [facility] FINDINGS: Postsurgical changes from right total hip arthroplasty. Hardware appears intact with appropriate alig nment. No radiographic evidence for complication. Total fluoroscopy time is 36.0 seconds. DAP: 2.2279 Gycm2 Please see the operative/procedural note for further details. [facility], , 01/04/2025 12:37 PM
[2025-01-04] MEDS: HYDROmorphone 0.5 MG/0.5 ML SYRINGE IVP PRN (13:15)
--- NOTE | 2025-01-04 13:30 | P.ANPRN ---
Procedure Note - Anesthesia - Nerve Block Performed Right Hendricks Single Time Out Performed: Yes (1008) Date of Procedure: 01/04/25 Procedure Start Time: 10:09 Procedure Stop Time: 10:12 Location of Patient: PreOp Indication: Acute Post-Operative Pain, Requested by Surgeon Specifically requested for management of pain by DrEmily: Mikhail Ramirez Sedation Type: Sedate with meaningful contact maintained Preparation: Sterile Prep Position: Supine Catheter: None Needle Types: Pajunk Needle Gauge: 21 Ultrasound used to visualize needle placement: Yes Ultrasound used to observe medication spread: Yes Injectate: 0.5% Ropivacaine (see comment for volume) (30cc +decadron 4mg) Blood Aspirated: No Pain Paresthesia on Injection Noted: No Resistance on Injection: Normal Image Stored and Saved: Yes Events: Uneventful and Well Tolerated
[2025-01-04] MEDS: HYDROmorphone 2 MG/ML 1 ML SYRINGE IVP PRN (15:10)
--- NOTE | 2025-01-04 15:51 | P.CONS ---
History of Present Illness - Reason for Consult Consult date: 01/04/25 Medical Management Requesting physician: Mikhail Ramirez - History of Present Illness History of Presenting Illness: Patient is a pleasant 54-year-old female with a past medical history of hypothyroidism and osteoarthritis. She is currently admitted under orthopedic surgery team status post right total hip arthroplasty. Surgical procedure completed by Dr. Ramirez secondary to severe right hip secondary to severe right hip arthritis. We were consulted for medical management throughout hospitalization. Patient seen and fully evaluated at bedside in room 472. She currently reports moderate postoperative pain currently rating 8 out of 10 at this time. She also reports pain and muscle spasms in her left hip and down her left leg. She denies having any dizziness, lightheadedness, chest pain, palpitations, shortness of breath, or experiencing any numbness or tingling in her extremities. Patient reports she has already been up to urinate without any difficulties. She denies having any postoperative nausea or vomiting and is tolerating regular diet. Review of systems: Pertinent positives and negatives as discussed in HPI, a complete review of systems was performed and all other systems are negative. Physical exam: Vital signs reviewed and stable. General: Nontoxic, no distress and appears stated age. Derm: Skin warm and dry, normal coloration for ethnicity. Head: Atraumatic, normocephalic and symmetric. Eyes: EOM's intact, no lid lag, and anicteric sclera Mouth: no lip lesions, mucus membranes moist Cardiovascular: regular rate and rhythm with normal S1S2, no murmur, positive posterior tibial pulses bilaterally, and cap refill < 2 seconds. Lungs: Respirations even, regular, and unlabored on room air. Lungs CTA bilaterally, no rhonchi, no rales, no wheezing, and no accessory muscle usage. Abdominal: soft, nontender to palpation, no guarding, no appreciable organomegaly Ext: . Movement and sensation intact. No gross muscle atrophy, no edema, no contractures Neuro: Speech clear, face symmetrical and CN II-XII grossly intact with no noted focal neuro deficits Psych: Alert and oriented to person, place, time, and situation. Appropriate and pleasant affect. Assessment and Plan of Care: Status post right total hip arthroplasty - Management per primary admitting orthopedic surgery team including DVT prophylaxis, pain management, wound/dressing management, weightbearing, and PT/OT. - Currently DVT prophylaxis with PEE hose and SCDs. Hypothyroidism -Continue daily medication regimen with levothyroxine 150 mcg daily. Data reviewed: - Vital signs reviewed. Blood pressure 100/67, heart rate 84, respiratory rate 16, temp 98.8 F, and SpO2 of 100% on room air. Thank you for allowing us to participate in the care of this pleasant patient. Do not hesitate to contact us with questions. Someone can be reached from the [facility] hospitalist group all hours of the day at [phone] or via [employer] Patient was seen independently by Nurse Practitioner. This document was prepared using [employer] dictation software. Please allow for errors in termite control technician while rare they do occur. Maurisio Irby NP rendered care for this patient independently, reviewed the findings and plan as documented in the note above and agree with plan. I did not physically speak with or examine the patient on this date. Past Medical History Past Medical History: Osteoarthritis (OA), Thyroid Disorder History of Any Multi-Drug Resistant Organisms: None Reported Past Surgical History: Back Surgery, Section Additional Past Surgical History / Comment(s): Spinal fusion, spinal stenosis Past Anesthesia/Blood Transfusion Reactions: No Reported Reaction Additional Past Anesthesia/Blood Transfusion Reaction / Comm: no hx blood transfusion hx Past Psychological History: No Psychological Hx Reported Smoking Status: Never smoker Past Alcohol Use History: Occasional Past Drug Use History: None Reported - Past Family History Mother Family Medical History: Hypertension Medications and Allergies Home Medications Medication Instructions Recorded Confirmed Type Acetaminophen [Tylenol Arthritis] 650 mg PO Q6H PRN 12/28/24 01/04/25 History Ibuprofen 800 mg PO Q8H PRN 12/28/24 01/04/25 History Levothyroxine Sodium [Synthroid] 150 mcg PO QAM 12/28/24 01/04/25 History oxyCODONE-APAP 10-325MG [Percocet 1 tab PO Q4HR PRN 12/28/24 01/04/25 History 10-325 mg] Allergies Allergy/AdvReac Type Severity Reaction Status Date / Time No Known Allergies Allergy Verified 01/04/25 09:23 Physical Exam Vitals: Vital Signs Temp Pulse Resp BP Pulse Ox 01/04/25 13:49 67 16 148/70 100 01/04/25 13:40 71 16 158/74 100 01/04/25 13:25 78 16 165/75 100 01/04/25 13:10 74 16 138/82 98 01/04/25 12:55 96.8 F L 91 16 144/84 100 01/04/25 10:16 80 16 124/89 100 01/04/25 09:26 97.5 F L 83 16 141/80 99 Intake and Output 01/04/25 01/04/25 01/04/25 06:59 14:59 22:59 Intake Total 1750 Output Total 300 Balance 1450 Intake: IV 1750 Output: Estimated Blood Loss 300 Other: Weight 88.7 kg 88.7 kg
[2025-01-04] MEDS: SODIUM CHLORIDE 0.9% 1,000 ML IV SCH (16:23)
[2025-01-04] MEDS: HYDROcodone/APAP 10-325MG 1 EACH TAB PO PRN (16:38)
[2025-01-04] MEDS: ceFAZolin 2 GM in DEXTROSE 5% IN WATER 50 ML IVPB SCH (17:34)
[2025-01-04] MEDS: SENNOSIDES-DOCUSATE SODIUM 1 EACH TAB PO SCH (21:11)
[2025-01-04] MEDS: ASPIRIN 81 MG PO SCH (21:11)
[2025-01-04] MEDS: diazePAM 5 MG TAB PO PRN (22:54)
[2025-01-04] MEDS: Phenol 1.4% Sore Throat Spray Bottle MUCOUS MEM PRN (23:30)
[2025-01-05] MEDS: hydrOXYzine pamoate 25 MG CAP PO PRN (04:50)
[2025-01-05] MEDS: LEVOTHYROXINE 75 MCG TAB PO SCH (05:49)
[2025-01-05] MEDS: oxyCODONE-APAP 10-325MG 1 EACH TAB PO PRN (05:49)
[2025-01-05] MEDS ORDERED: oxyCODONE-APAP 5-325MG 1 EACH TAB PO PRN (06:52)
[2025-01-05] MEDS: FAMOTIDINE 20 MG TAB PO SCH (07:42)
--- NOTE | 2025-01-05 08:19 | P.PN ---
Subjective Principal diagnosis: Patient is very painful this morning, mostly in her non-operative left leg. She decribes shooting pain down her left leg. She has been taking dilaudid and percocet. The pain in her right leg is relatively well controlled. She has been up several times. Objective - Vital Signs Vital signs: Vital Signs Temp 97.6 F 01/05/25 07:39 Pulse 95 01/05/25 07:39 Resp 17 01/05/25 07:39 BP 106/70 01/05/25 07:39 Pulse Ox 99 01/05/25 07:39 FiO2 Intake & Output 01/04/25 01/05/25 01/05/25 18:59 06:59 18:59 Intake Total 1750 Output Total 300 Balance 1450 Weight 88.7 kg Intake: IV 1750 Output: Estimated Blood Loss 300 Other: Voiding Method Toilet # Voids 2 1 - Exam Resting comfortably in bed. No apparent distress. Alert and answers questions. RIGHT LE: dressing intact, no drainage or strikethrough. Thigh soft. Femoral nerve function intact, moves foot/ankle up/down. Foot is warm and well-perfused. LEFT LE: Minimal pain with PROM of hip and knee. Moves ankle/toes up/down. Assessment and Plan Assessment: POD #1 s/p right DA MELANIE for advanced hip OA Chronic pain - on Percocet at baseline for chronic pain Prior lumbar spine fusion, continued symptoms of lumbar stenosis and radiculopathy Moderate left hip OA Plan: 1. Weightbearing as tolerated on the operative extremity. Up with assistance and a walker. 2. DVT prophylaxis with aspirin 81 mg twice a day 3. Physical therapy for gait training and mobilization 4. Leave surgical dressing in place. 5. Internal medicine for perioperative medical management 6. Disposition: Patient has issues with chronic pain and is on percocet at baseline. We discussed pain control following surgery due to her tolerance to opioids. She is also having issues with her left leg, both from her back and left hip. I would like to keep her an additional day for continued pain control. She was also told to not get out of bed without assistance as she says she has been out of bed several times on her own. She understands she is a fall risk due to her recent surgery. I will re-assess her tomorrow for possible d/c.
[2025-01-05 09:51] LABS: Basophils # (A) 0.01 X 10*3/uL (0.00-0.10); Basophils % (A) 0.1 %; Eosinophils # (A) 0 X 10*3/uL (0.04-0.35); Eosinophils % (A) 0 %; HGB 8.2 g/dL (12.0-15.0); Lymphocytes # (A) 1.71 X 10*3/uL (0.90-5.00); Lymphocytes % (A) 12.7 %; MCH 31.2 pg (27.0-32.0); MCHC 31.5 g/dL (32.0-37.0); MCV 98.9 FL (80.0-97.0); Mean Platelet Volume 10.5 FL (9.5-12.2); Monocytes # (A) 1.38 X 10*3/uL (0.20-1.00); Monocytes % (A) 10.2 %; NRBC Per 100 WBC 0 X 10*3/uL (0.00-0.01); Neutrophils # (A) 10.36 X 10*3/uL (1.80-7.70); Neutrophils % (A) 76.6 %; Platelet Count 251 X 10*3/uL (140-440); RBC 2.63 X 10*6/uL (4.10-5.20); RDW 15.6 % (11.5-14.5); WBC 13.51 X 10*3/uL (4.50-10.00)
[2025-01-05] MEDS: MULTIVITAMINS, THERA 1 EACH TAB PO SCH ×2 (13:20→20:45)
--- NOTE | 2025-01-05 17:30 | P.PN ---
Subjective Progress Note Date: 01/05/25 Hospital course: Patient is a pleasant 54-year-old female with a past medical history of hypothyroidism and osteoarthritis. She is currently admitted under orthopedic surgery team status post right total hip arthroplasty. Surgical procedure completed by Dr. Ramirez secondary to severe right hip secondary to severe right hip arthritis. We were consulted for medical management throughout hospitalization. Physical exam: Patient seen and fully evaluated at bedside this morning. She reports having a difficult night with pain management but states pain is slightly better this m orning. She denies having any other complaints including headache, lightheadedness, dizziness, chest pain, palpitations, or shortness of breath. Vital signs reviewed and stable. General: Nontoxic, no distress and appears stated age. Derm: Skin warm and dry, normal coloration for ethnicity. Head: Atraumatic, normocephalic and symmetric. Eyes: EOM's intact, no lid lag, and anicteric sclera Mouth: no lip lesions, mucus membranes moist Cardiovascular: regular rate and rhythm with normal S1S2, no murmur, positive posterior tibial pulses bilaterally, and cap refill < 2 seconds. Lungs: Respirations even, regular, and unlabored on room air. Lungs CTA bilaterally, no rhonchi, no rales, no wheezing, and no accessory muscle usage. Abdominal: soft, nontender to palpation, no guarding, no appreciable organomegaly Ext: . Movement and sensation intact. No gross muscle atrophy, no edema, no contractures Neuro: Speech clear, face symmetrical and CN II-XII grossly intact with no noted focal neuro deficits Psych: Alert and oriented to person, place, time, and situation. Appropriate and pleasant affect. Assessment and Plan of Care: Status post right total hip arthroplasty - Management per primary admitting orthopedic surgery team including DVT prophylaxis, pain management, wound/dressing management, weightbearing, and PT/OT. - Currently DVT prophylaxis with PEE hose and SCDs. Acute postoperative blood loss anemia, stable and expected finding - Preoperative hemoglobin 11.5 with postoperative hemoglobin of 8.2. No signs of active bleeding noted. No need for transfusion at this time. Will continue to monitor with repeat a.m. labs and transfuse if indicated for symptomatic ane wilbert and/or hemoglobin less than 7. Hypothyroidism -Continue daily medication regimen with levothyroxine 150 mcg daily. Data reviewed: - Vital signs reviewed. Blood pressure 106/70, heart rate 95, respiratory rate 17, temp 97.6 F, and SpO2 of 99% on room air - Postoperative labs reviewed. Showing acute postoperative blood loss anemia with preoperative hemoglobin of 11.5 and postoperative hemoglobin of 8.2. CBC also showing mild leukocytosis with WBC count of 13.51. Thank you for allowing us to participate in the care of this pleasant patient. Do not hesitate to contact us with questions. Someone can be reached from the [facility] hospitalist group all hours of the day at [phone] or via [employer]. Patient was seen independently by Nurse Practitioner. This document was prepared using [employer] dictation software. Please allow for errors in golf professional while rare they do occur. Maurisio Irby NP rendered care for this patient independently, reviewed the findings and plan as documented in the note above and agree with plan. I did not physically speak with or examine the patient on this date. . Objective - Vital Signs Vital signs: Vital Signs Temp 97.6 F 01/05/25 07:39 Pulse 95 01/05/25 08:00 Resp 17 01/05/25 08:00 BP 106/70 01/05/25 07:39 Pulse Ox 99 01/05/25 07:39 FiO2 Intake & Output 01/04/25 01/05/25 01/05/25 18:59 06:59 18:59 Intake Total 1750 Output Total 300 Balance 1450 Weight 88.7 kg Intake: IV 1750 Output: Estimated Blood Loss 300 Other: Voiding Method Toilet Toilet # Voids 2 1 - Labs CBC & Chem 7: 01/05/25 05:06
[2025-01-05] MEDS ORDERED: TEMAZEPAM 15 MG CAP PO PRN (22:00)
--- NOTE | 2025-01-06 08:57 | P.PN ---
Subjective Patient continues to complain of pain in both hips. She is still requiring Dilaudid. The patient states this morning she understands her issues with pain given she takes Percocet 10/325 at baseline. Objective - Vital Signs Vital signs: Vital Signs Temp 99.2 F 01/06/25 07:47 Pulse 95 01/06/25 07:47 Resp 18 01/06/25 07:47 BP 117/80 01/06/25 07:47 Pulse Ox 99 01/06/25 07:47 FiO2 Intake & Output 01/05/25 01/06/25 01/06/25 18:59 06:59 18:59 Other: Voiding Method Toilet Toilet # Voids 3 2 - Exam The patient is resting in bed. She is tearful from pain. A focused exam of the right lower extremity was conducted. The dressing over the anterior aspect of her right hip is intact with no drainage or strikethrough. Her thigh is soft and compressible. Femoral nerve function is intact. She can actively plantarflex and dorsiflex her ankle and her toes. - Labs CBC & Chem 7: 01/05/25 05:06 Labs: Abnormal Lab Results - Last 24 Hours (Table) 01/05/25 Range/Units 05:06 WBC 13.51 H (4.50-10.00) X 10*3/uL RBC 2.63 L (4.10-5.20) X 10*6/uL Hgb 8.2 L (12.0-15.0) g/dL Hct 26.0 L (37.2-46.3) % MCV 98.9 H (80.0-97.0) FL MCHC 31.5 L (32.0-37.0) g/dL RDW 15.6 H (11.5-14.5) % Immature Gran # 0.05 H (0.00-0.04) X 10*3/uL Neutrophils # 10.36 H (1.80-7.70) X 10*3/uL Monocytes # 1.38 H (0.20-1.00) X 10*3/uL Eosinophils # 0 L (0.04-0.35) X 10*3/uL Assessment and Plan Assessment: Postoperative day 2 status post right direct anterior total hip arthroplasty Chronic pain on Percocet 10/325 at baseline Plan: Continue treatment as outlined yesterday. The patient continues to require IV Dilaudid for breakthrough pain. We will increase the frequency that she can get Percocet 10/325 to every 4 hours and we will hopefully wean her off IV Dilaudid today. The patient understands her low pain tolerance given her high doses of pain medications preoperatively. We will keep her an additional night for pain control and will hopefully discharge home tomorrow. The patient was again encouraged to call for assistance getting out of bed as she states she is continue to get out of bed without assistance
[2025-01-06 09:57] LABS: HCT 24.4 % (37.2-46.3); HGB 7.7 g/dL (12.0-15.0); MCH 31.2 pg (27.0-32.0); MCHC 31.6 g/dL (32.0-37.0); MCV 98.8 FL (80.0-97.0); Mean Platelet Volume 10.5 FL (9.5-12.2); NRBC Per 100 WBC 0 X 10*3/uL (0.00-0.01); Platelet Count 235 X 10*3/uL (140-440); RBC 2.47 X 10*6/uL (4.10-5.20); RDW 15.7 % (11.5-14.5); WBC 8.16 X 10*3/uL (4.50-10.00)
[2025-01-06 10:02] LABS: BUN/Creat Ratio 17.86 Ratio (12.00-20.00); Blood Urea Nitrogen 12.5 mg/dL (9.0-27.0); Calcium 8.4 mg/dL (8.7-10.3); Carbon Dioxide 22.3 mmol/L (21.6-31.8); Chloride 101 mmol/L (96-109); Glucose 111 mg/dL (70-110); Magnesium 1.8 mg/dL (1.5-2.4); Potassium 4.5 mmol/L (3.5-5.5); Sodium 134 mmol/L (135-145)
[2025-01-06] MEDS: oxyCODONE-APAP 10-325MG 1 EACH TAB PO PRN (11:29)
--- NOTE | 2025-01-06 14:11 | P.PN ---
Subjective Progress Note Date: 01/06/25 Hospital course: Patient is a pleasant 54-year-old female with a past medical history of hypothyroidism and osteoarthritis. She is currently admitted under orthopedic surgery team status post right total hip arthroplasty. Surgical procedure completed by Dr. Ramirez secondary to severe right hip secondary to severe right hip arthritis. We were consulted for medical management throughout hospitalization. Physical exam: Patient seen and fully evaluated at bedside this morning. She is postoperative day 2 and continues to report uncontrolled pain in bilateral hips. Adjustments were made to current pain medication regimen by orthopedic surgeon. Patient denies any other complaints. She is tolerating oral intake without any episodes of nausea or vomiting and denies having any headache, lightheadedness, dizziness, chest pain, palpitations, shortness of breath or experiencing any numbness or focal weakness in her extremities. She reports urinating without any difficulties and reports passing flatus, but has not yet had a bowel movement since arrival to our facility. Will add MiraLAX 17 g nightly to current bowel regimen. Vital signs reviewed and stable. General: Nontoxic, no distress and appears stated age. Derm: Skin warm and dry, normal coloration for ethnicity. Head: Atraumatic, normocephalic and symmetric. Eyes: EOM's intact, no lid lag, and anicteric sclera Mouth: no lip lesions, mucus membranes moist Cardiovascular: regular rate and rhythm with normal S1S2, no murmur, positive posterior tibial pulses bilaterally, and cap refill < 2 seconds. Lungs: Respirations even, regular, and unlabored on room air. Lungs CTA bilaterally, no rhonchi, no rales, no wheezing, and no accessory muscle usage. Abdominal: soft, nontender to palpation, no guarding, no appreciable organomegaly Ext: . Movement and sensation intact. No gross muscle atrophy, no edema, no contractures Neuro: Speech clear, face symmetrical and CN II-XII grossly intact with no noted focal neuro deficits Psych: Alert and oriented to person, place, time, and situation. Appropriate and pleasant affect. Assessment and Plan of Care: Status post right total hip arthroplasty - Management per primary admitting orthopedic surgery team including DVT prophylaxis, pain management, wound/dressing management, weightbearing, and PT/OT. - Currently DVT prophylaxis with PEE hose and SCDs. Acute postoperative blood loss anemia - Preoperative hemoglobin 11.5 with postoperative hemoglobin currently 7.7. No signs of active bleeding noted. No need for transfusion at this time. Will continue to monitor with repeat a.m. labs and transfuse if indicated for symptomatic anemia and/or hemoglobin less than 7. Hypothyroidism -Continue daily medication regimen with levothyroxine 150 mcg daily. Data reviewed: - Vital signs reviewed. Blood pressure 117/80, heart rate 95, respiratory rate 18, temp 99.2 F, and SpO2 of 99% on room air. - Postoperative labs reviewed. Showing acute postoperative blood loss anemia with preoperative hemoglobin of 11.5 and postoperative hemoglobin of 7.7. BMP showing mild hyponatremia with sodium of 134, blood glucose 111, and magnesium was 1.8. Thank you for allowing us to participate in the care of this pleasant patient. Do not hesitate to contact us with questions. Someone can be reached from the [facility] hospitalist group all hours of the day at [phone] or via [employer]. Patient was seen independently by Nurse Practitioner. This document was prepared using [employer] dictation software. Please allow for errors in all source intelligence technician while rare they do occur. Maurisio Irby NP rendered care for this patient independently, reviewed the findings and plan as documented in the note above and agree with plan. I did not physically speak with or examine the patient on this date. . Objective - Vital Signs Vital signs: Vital Signs Temp 99.2 F 01/06/25 07:47 Pulse 95 01/06/25 07:47 Resp 18 01/06/25 07:47 BP 117/80 01/06/25 07:47 Pulse Ox 99 01/06/25 07:47 FiO2 Intake & Output 01/05/25 01/06/25 01/06/25 18:59 06:59 18:59 Other: Voiding Method Toilet Toilet # Voids 3 2 - Labs CBC & Chem 7: 01/06/25 03:27 01/06/25 03:27 Labs: Abnormal Lab Results - Last 24 Hours (Table) 01/05/25 Range/Units 05:06 WBC 13.51 H (4.50-10.00) X 10*3/uL RBC 2.63 L (4.10-5.20) X 10*6/uL Hgb 8.2 L (12.0-15.0) g/dL Hct 26.0 L (37.2-46.3) % MCV 98.9 H (80.0-97.0) FL MCHC 31.5 L (32.0-37.0) g/dL RDW 15.6 H (11.5-14.5) % Immature Gran # 0.05 H (0.00-0.04) X 10*3/uL Neutrophils # 10.36 H (1.80-7.70) X 10*3/uL Monocytes # 1.38 H (0.20-1.00) X 10*3/uL Eosinophils # 0 L (0.04-0.35) X 10*3/uL
[2025-01-06] MEDS: SODIUM CHLORIDE 0.9% 1,000 ML IV ONE (20:57)
[2025-01-06] MEDS: polyethylene glycoL 3350 17 GM POWD.PACK PO SCH (21:07)
[2025-01-07 07:38] VITALS: BP 114/78; PULSE 101; RESP 18; TEMP 98.4
--- NOTE | 2025-01-07 08:28 | P.DS ---
Providers Attending physician: Mikhail Ramirez Consults: 01/04/25 12:38 Consult Physician Routine Consulting Provider: Paxton Guerrero Consult Reason/Comments: post op medical management Do you want consulting provider notified?: Yes Primary care physician: Stated None Hospital Course: This is a 54-year-old patient, with past medical history of right severe hip osteoarthritis, who failed nonsurgical conservative management. On 01/04/2025 the patient presented to the [facility] pre-op department for scheduled direct anterior total hip arthroplasty with Dr. Ramirez. The patient tolerated the procedure well. The patient was transferred to the orthopedic floor. The patient had no acute events over night. The patient's pain has been well- controlled. Patient was examined at bedside. Patient is resting comfortably in bed. No apparent distress. They are awake, alert and able to answer questions. Inspection: The surgical dressing is intact, there is no drainage or strikethrough. The skin surrounding the dressing is free of erythema. There is mild swelling in the operative thigh. Palpation: The operative calf is soft to compression. No calf tenderness. Neurovascular: Operative femoral nerve function is intact. The patient is able to actively plantarflex and dorsiflex their operative ankle and toes. Operative extremity sensation is intact to light touch throughout Their operative foot appears well perfused, palpable dorsalis pedis pulse. Patient worked with physical therapy, if passes physical therapy can discharge home today. Plan follow up in two weeks in our office. Please see med rec for a list of accurate medications. Assessment: 02/03/2025 status post right total hip arthroplasty for severe right hip osteoarthritis Right hip pain Chronic pain Multiple medical problems. Plan - Discharge Summary Discharge Rx Participant: No New Discharge Prescriptions: New polyethylene glycoL 3350 [Miralax] 17 gm PO DAILY 30 Days #30 packet Aspirin 81 mg PO BID #60 tab hydrOXYzine HCL 25 mg PO Q8HR PRN 14 Days #42 tab PRN Reason: insomnia Sennosides-Docusate Sodium [Senokot-S] 1 tab PO BID PRN #60 tablet PRN Reason: Constipation Continue Levothyroxine Sodium [Synthroid] 150 mcg PO QAM No Action Acetaminophen [Tylenol Arthritis] 650 mg PO Q6H PRN PRN Reason: Pain Ibuprofen 800 mg PO Q8H PRN PRN Reason: Pain oxyCODONE-APAP 10-325MG [Percocet 10-325 mg] 1 tab PO Q4HR PRN PRN Reason: Pain Discharge Medication List Acetaminophen [Tylenol Arthritis] 650 mg PO Q6H PRN 12/28/24 [History] Ibuprofen 800 mg PO Q8H PRN 12/28/24 [History] Levothyroxine Sodium [Synthroid] 150 mcg PO QAM 12/28/24 [History] oxyCODONE-APAP 10-325MG [Percocet 10-325 mg] 1 tab PO Q4HR PRN 12/28/24 [History] polyethylene glycoL 3350 [Miralax] 17 gm PO DAILY 30 Days #30 packet 01/05/25 [Rx] Aspirin 81 mg PO BID #60 tab 01/07/25 [Rx] Sennosides-Docusate Sodium [Senokot-S] 1 tab PO BID PRN #60 tablet 01/07/25 [Rx] hydrOXYzine HCL 25 mg PO Q8HR PRN 14 Days #42 tab 01/07/25 [Rx] Follow up Appointment(s)/Referral(s): [facility] [NON-STAFF] - 1 Week Mikhail Ramirez MD [Medical Doctor] - 2 Weeks Activity/Diet/Wound Care/Special Instructions: *Patient to call [employer] at [phone] to set up delivery of the bedside commode chair once discharged from the hospital. 1. Weight-bear as tolerated on your operative extremity unless instructed otherwise. Use a walker or other assistive device to ambulate. 2. Leave surgical dressing in place. If your dressing becomes saturated with blood, there is drainage, or the dressing becomes loose please contact the office. 3. It is okay to shower with your surgical dressing, but do not submerge in water (no hot tubs, bath's, swimming etc.) 4. Make sure to take her blood clot prevention medication as prescribed (aspirin, Eliquis, Xarelto, and Plavix are commonly prescribed medications for blood clot prevention) 5. While taking Yancey or Percocet for pain make sure you're taking a stool softener (Colace) and drink lots of water. 6. Keep all follow-up appointments as scheduled. You will usually be seen in 1-2 weeks following surgery. 7. Please contact the office with any questions or concerns [phone] Discharge/Stand Alone Forms: Area PCPs Discharge Disposition: HOME WITH HOME HEALTH SERVICES
[2025-01-07 08:32] LABS: Basophils # (A) 0.04 X 10*3/uL (0.00-0.10); Basophils % (A) 0.5 %; Eosinophils # (A) 0.05 X 10*3/uL (0.04-0.35); Eosinophils % (A) 0.6 %; HCT 26.9 % (37.2-46.3); HGB 8.5 g/dL (12.0-15.0); Lymphocytes # (A) 2.55 X 10*3/uL (0.90-5.00); Lymphocytes % (A) 30.3 %; MCH 31.7 pg (27.0-32.0); MCHC 31.6 g/dL (32.0-37.0); MCV 100.4 FL (80.0-97.0); Mean Platelet Volume 10.7 FL (9.5-12.2); Monocytes # (A) 0.75 X 10*3/uL (0.20-1.00); Monocytes % (A) 8.9 %; NRBC Per 100 WBC 0 X 10*3/uL (0.00-0.01); Neutrophils # (A) 4.99 X 10*3/uL (1.80-7.70); Neutrophils % (A) 59.3 %; Platelet Count 249 X 10*3/uL (140-440); RBC 2.68 X 10*6/uL (4.10-5.20); RDW 15.4 % (11.5-14.5); WBC 8.41 X 10*3/uL (4.50-10.00)
[2025-01-07 08:39] LABS: Blood Urea Nitrogen 11.2 mg/dL (9.0-27.0); Calcium 8.6 mg/dL (8.7-10.3); Carbon Dioxide 24.3 mmol/L (21.6-31.8); Chloride 99 mmol/L (96-109); Glucose 107 mg/dL (70-110); Magnesium 2.1 mg/dL (1.5-2.4); Potassium 4.2 mmol/L (3.5-5.5); Sodium 135 mmol/L (135-145)
--- NOTE | 2025-01-07 12:48 | P.PN ---
Subjective Progress Note Date: 01/07/25 Hospital course: Patient is a pleasant 54-year-old female with a past medical history of hypothyroidism and osteoarthritis. She is currently admitted under orthopedic surgery team status post right total hip arthroplasty. Surgical procedure completed by Dr. Ramirez secondary to severe right hip secondary to severe right hip arthritis. We were consulted for medical management throughout hospitalization. Physical exam: Patient seen and fully evaluated at bedside this morning. She is postoperative day 3 she appears to be doing well this morning. She does continue to report moderate postoperative pain in bilateral hips with sciatica down left leg. She reports pain is improved with pain medication regimen. She denies having any headache, lightheadedness, dizziness, chest pain, palpitations, shortness of breath, nausea, vomiting, or any difficulties with urinary or bowel function. Patient reports feeling ready to go home today. Vital signs reviewed and stable. General: Nontoxic, no distress and appears stated age. Derm: Skin warm and dry, normal coloration for ethnicity. Head: Atraumatic, normocephalic and symmetric. Eyes: EOM's intact, no lid lag, and anicteric sclera Mouth: no lip lesions, mucus membranes moist Cardiovascular: regular rate and rhythm with normal S1S2, no murmur, positive posterior tibial pulses bilaterally, and cap refill < 2 seconds. Lungs: Respirations even, regular, and unlabored on room air. Lungs CTA bilaterally, no rhonchi, no rales, no wheezing, and no accessory muscle usage. Abdominal: soft, nontender to palpation, no guarding, no appreciable organomegaly Ext: . Movement and sensation intact. No gross muscle atrophy, no edema, no contractures Neuro: Speech clear, face symmetrical and CN II-XII grossly intact with no noted focal neuro deficits Psych: Alert and oriented to person, place, time, and situation. Appropriate and pleasant affect. Assessment and Plan of Care: Status post right total hip arthroplasty - Management per primary admitting orthopedic surgery team including DVT prophylaxis, pain management, wound/dressing management, weightbearing, and PT/OT. - Currently DVT prophylaxis with PEE hose and SCDs. Acute postoperative blood loss anemia - Preoperative hemoglobin 11.5 with postoperative hemoglobin currently 8.5. No signs of active bleeding noted. No need for transfusion or further int erventions at this time. Hypothyroidism -Continue daily medication regimen with levothyroxine 150 mcg daily. Data reviewed: -Vital signs reviewed. Blood pressure 114/78, heart rate 101, respiratory rate 18, temp 98.4 F, and SpO2 of 98% on room air. -Reviewed. CBC showing stable macrocytic anemia with hemoglobin of 8.5 and MCV of 100.4. BMP unremarkable. Magnesium 2.1. Blood glucose was 107. Patient is medically optimized for discharge once cleared by primary admitting orthopedic surgery team. Thank you for allowing us to participate in the care of this pleasant patient. Do not hesitate to contact us with questions. Someone can be reached from the [facility] hospitalist group all hours of the day at [phone] or via [employer]. Patient was seen independently by Nurse Practitioner. This document was prepared using [employer] dictation software. Please allow for errors in teacher of the visually impaired while rare they do occur. Maurisio Irby NP rendered care for this patient independently, reviewed the findings and plan as documented in the note above and agree with plan. I did not physically speak with or examine the patient on this date. . Objective - Vital Signs Vital signs: Vital Signs Temp 98.4 F 01/07/25 06:51 Pulse 101 H 01/07/25 06:51 Resp 18 01/07/25 06:51 BP 114/78 01/07/25 06:51 Pulse Ox 98 01/07/25 06:51 FiO2 Intake & Output 01/06/25 01/07/25 01/07/25 18:59 06:59 18:59 Other: Voiding Method Toilet Toilet Bedside Commode # Voids 9 8 - Labs CBC & Chem 7: 01/07/25 03:06 01/07/25 03:06 Labs: Abnormal Lab Results - Last 24 Hours (Table) 01/06/25 01/06/25 01/07/25 Range/Units 03:27 03:27 03:06 RBC 2.47 L 2.68 L (4.10-5.20) X 10*6/uL Hgb 7.7 L 8.5 L (12.0-15.0) g/dL Hct 24.4 L 26.9 L (37.2-46.3) % MCV 98.8 H 100.4 H (80.0-97.0) FL MCHC 31.6 L 31.6 L (32.0-37.0) g/dL RDW 15.7 H 15.4 H (11.5-14.5) % Sodium 134 L (135-145) mmol/L Glucose 111 H (70-110) mg/dL Calcium 8.4 L (8.7-10.3) mg/dL
== END 2025-01-07 11:10 | disposition home health service (06) ==
LOC: OR 08:51 → 4SSUR 13:40 → OR 01-07 11:10
PROVIDERS: ATTEND Orthopaedic Surgery
DX: M16.11 Unilateral primary osteoarthritis, right hip (principal); G89.18 Other acute postprocedural pain; E03.9 Hypothyroidism, unspecified; Z79.890 Hormone replacement therapy
CPT/HCPCS: 97161; 64473; 80048; 83735; 85025 ×2; 73501; 27130; C1776; J2250; J1171 ×4; J1100; J0690 ×2; J2405; J3010; J1885; J1308

== ENCOUNTER 2025-01-07 16:42 | Emergency (ER) | payer MEDICARE, OTHER ==
--- NOTE | 2025-01-07 17:52 | XR ---
EXAMINATION TYPE: XR Hip Complete RT DATE OF EXAM: 01/07/2025 5:42 PM INDICATION: Patient age:Female; 54 years old; Reason for study: fall, recent sx; PHH. pain COMPARISON: Right hip fluoroscopic imaging 01/04/2025, pelvic radiograph 12/07/2023 TECHNIQUE: The right hip was examined in the frontal and lateral projections . FINDINGS: Postsurgical changes from right total hip arthroplasty. Hardware appears intact with approp riate alignment. Partial visualization of lumbar fusion hardware.No evidence of any acute osseous pat hology, joint dislocation, or soft tissue swelling. IMPRESSION: 1. No acute osseous pathology. 2. Postsurgical changes from right total hip arthroplasty. Hardware appears intact with appropriate alignment. [facility], , 01/07/2025 5:50 PM
--- NOTE | 2025-01-07 18:23 | ED ---
Fall HPI - General Chief Complaint: Fall Stated Complaint: fall down stairs, post op surg Source: patient, EMS Mode of arrival: EMS - History of Present Illness Initial Comments: 54-year-old patient presented status post fall. Patient reports she had right total hip arthroplasty on Tuesday with Dr. Ramirez and was discharged home this morning. Patient reports she slipped and fell in her kitchen and fell down a flight of stairs. She is concerned about her surgical site and called the ambulance to bring her to the ER for further evaluation. Denies any fevers, chills, abdominal pain, urinary or bowel complaints. - Related Data Home Medications Medication Instructions Recorded Confirmed Acetaminophen [Tylenol Arthritis] 650 mg PO Q6H PRN 12/28/24 01/04/25 Ibuprofen 800 mg PO Q8H PRN 12/28/24 01/04/25 Levothyroxine Sodium [Synthroid] 150 mcg PO QAM 12/28/24 01/04/25 oxyCODONE-APAP 10-325MG [Percocet 1 tab PO Q4HR PRN 12/28/24 01/04/25 10-325 mg] Previous Rx's Medication Instructions Recorded polyethylene glycoL 3350 [Miralax] 17 gm PO DAILY 30 Days #30 packet 01/05/25 Aspirin 81 mg PO BID #60 tab 01/07/25 Sennosides-Docusate Sodium 1 tab PO BID PRN #60 tablet 01/07/25 [Senokot-S] hydrOXYzine HCL 25 mg PO Q8HR PRN 14 Days #42 tab 01/07/25 Allergies Allergy/AdvReac Type Severity Reaction Status Date / Time No Known Allergies Allergy Verified 01/04/25 09:23 Review of Systems ROS Statement: Those systems with pertinent positive or pertinent negative responses have been documented in the HPI. ROS Other: All systems not noted in ROS Statement are negative. Constitutional: Denies: fever, chills ENT: Denies: ear pain, throat pain Respiratory: Denies: cough, dyspnea Cardiovascular: Denies: chest pain, palpitations Endocrine: Denies: fatigue Gastrointestinal: Denies: abdominal pain, nausea, vomiting Genitourinary: Denies: urgency, dysuria Musculoskeletal: Denies: back pain Skin: Denies: rash, lesions Past Medical History Past Medical History: Osteoarthritis (OA), Thyroid Disorder History of Any Multi-Drug Resistant Organisms: None Reported Past Surgical History: Back Surgery, Section Additional Past Surgical History / Comment(s): Spinal fusion, spinal stenosis Past Anesthesia/Blood Transfusion Reactions: No Reported Reaction Additional Past Anesthesia/Blood Transfusion Reaction / Comment(s): no hx blood transfusion hx Past Psychological History: No Psychological Hx Reported Smoking Status: Never smoker Past Alcohol Use History: Occasional Past Drug Use History: None Reported - Past Family History Mother Family Medical History: Hypertension General Exam Limitations: no limitations General appearance: alert, in no apparent distress Respiratory exam: Present: normal lung sounds bilaterally. Absent: respiratory distress Cardiovascular Exam: Present: regular rate, normal rhythm GI/Abdominal exam: Present: soft. Absent: distended, tenderness Extremities exam: Absent: tenderness, calf tenderness Neurological exam: Present: alert, oriented X3 Psychiatric exam: Present: normal affect, normal mood Skin exam: Present: warm, dry, intact Course Vital Signs 01/07/25 17:03 Temperature 98.9 F Pulse Rate 109 H Respiratory 16 Rate Blood Pressure 124/62 O2 Sat by Pulse 97 Oximetry Medical Decision Making - Medical Decision Making Was pt. sent in by a medical professional or institution (, PA, SCIENTIFIC PROGRAMMER ANALYST, urgent care, hospital, or long-term...) When possible be specific @ -No Did you speak to anyone other than the patient for history (EMS, parent, family, police, friend...)? What history was obtained from this source @ -No Did you review nursing and triage notes (agree or disagree)? Why? @ -I reviewed and agree with nursing and triage notes Were old charts reviewed (outside hosp., previous admission, EMS record, old EKG, old radiological studies, urgent care reports/EKG's, long-term records)? Report findings @ -No old charts were reviewed Differential Diagnosis? @ -Hip fracture, hematoma, displaced surgical hardware, this is not an all- inclusive list EKG interpreted by me (3pts min.). @ -As above X-rays interpreted by me (1pt min.). @ -X-ray shows normal postsurgical changes, hardware is intact and in place. No acute fractures noted. CT interpreted by me (1pt min.). @ -None done U/S interpreted by me (1pt. min.). @ -None done What testing was considered but not performed or refused? (CT, X-rays, U/S, labs)? Why? @ -None What meds were considered but not given or refused? Why? @ -None Did you discuss the management of the patient with other professionals (professionals i.e. , PA, SCIENTIFIC PROGRAMMER ANALYST, lab, RT, psych nurse, social media analyst, director diversity, teacher, correction officer reformatory, leather case finisher)? Give summary @ -Case was discussed with ED attending physician Dr. Arias. Dr. Ramirez's group was notified that patient was evaluated in ER today. Was smoking cessation discussed for >3mins.? @ -No Was critical care preformed (if so, how long)? @ -No Were there social determinants of health that impacted care today? How? (Homelessness, low income, unemployed, alcoholism, drug addiction, transportation, low edu. Level, literacy, decrease access to med. care, assisted, rehab)? @ -No Was there de-escalation of care discussed even if they declined (Discuss DNR or withdrawal of care, Hospice)? DNR status @ -No What co-morbidities impacted this encounter? (DM, HTN, Smoking, COPD, CAD, Cancer, CVA, ARF, Chemo, Hep., AIDS, mental health diagnosis, sleep apnea, morbid obesity)? @ -None Was patient admitted / discharged? Hospital course, mention meds given and route, prescriptions, significant lab abnormalities, going to OR and other pertinent info. @ -X-ray was unremarkable. Patient will be discharged home with self-care. Patient to follow-up with PCP in 1 to 2 days. Patient to follow-up with orthopedics as scheduled. Undiagnosed new problem with uncertain prognosis? @ -No Drug Therapy requiring intensive monitoring for toxicity (Heparin, Nitro, In sulin, Cardizem)? @ -No Were any procedures done? @ -No Diagnosis/symptom? @ -Fall Acute, or Chronic, or Acute on Chronic? @ -Acute Uncomplicated (without systemic symptoms) or Complicated (systemic symptoms)? @ -Default Side effects of treatment? @ -No Exacerbation, Progression, or Severe Exacerbation? @ -No Poses a threat to life or bodily function? How? (Chest pain, [place], [place], pneumonia, PE, COPD, DKA, ARF, appy, cholecystitis, CVA, Diverticulitis, Homicidal, Suicidal, threat to staff... and all critical care pts) @ -No Disposition Clinical Impression: Fall Disposition: HOME SELF-CARE Additional Instructions: Every disease is a spectrum and a small chance still exists that a serious condition could develop, for this reason, please monitor yourself closely for new, changing or worsening symptoms, symptoms that persist beyond 48 hours, any further episodes of vomiting blood, difficulty in breathing, severe abdominal pain, symptoms that did not improve in the next 48 hours, black or bloody stools, fever, inability to tolerate/keep down fluids or your medications, inability to follow up with outpatient providers as instructed and should you experience these symptoms or should you have any further concerns for your wellbeing please return to the ED or call 911 immediately. PLEASE take prescriptions as listed in discharge instructions. PLEASE call your primary care physician as soon as possible to arrange / discuss plan for followup appointment. Appointment in the next 1-3 days is strongly encouraged if possible. Please follow-up with orthopedics as scheduled. PLEASE let us know here before you leave if there is anything further we can do to be of any assistance. Take care and feel Better! Is patient prescribed a controlled substance at d/c from ED?: No Referrals: None,Stated [Primary Care Provider] - 1-2 days Time of Disposition: 18:00
[2025-01-07 18:51] VITALS: BP 126/57; PULSE 93; RESP 20; TEMP 98
== END 2025-01-07 18:45 | disposition home or self-care (01) ==
LOC: EC 16:42
DX: M25.551 Pain in right hip (principal); Z96.641 Presence of right artificial hip joint; W10.9XXA Fall (on) (from) unspecified stairs and steps, initial encounter; Y92.000 Kitchen of unspecified non-institutional (private) residence as the place of occurrence of the external cause
CPT/HCPCS: 73502; 99283